=== PATIENT | female | born 1965 | race Two or more races ===

== ENCOUNTER 2024-06-06 00:20 | Emergency (ER) | payer OTHER ==
[~2024-06-06] VITALS: Ht 162.6 cm; Wt 63.5 kg
[2024-06-06] MEDS ORDERED: KETO10TA2 PO (01:58)
== END 2024-06-06 02:05 ==
LOC: ER 00:20
DX: S89.82XA Other specified injuries of left lower leg, initial encounter (principal); W19.XXXA Unspecified fall, initial encounter; Y93.89 Activity, other specified; Y92.488 Other paved roadways as the place of occurrence of the external cause; Y99.8 Other external cause status; I10 Essential (primary) hypertension; E03.8 Other specified hypothyroidism